=== PATIENT | female | born 1965 | race Caucasian/White ===

== ENCOUNTER 2017-05-28 12:09 | Emergency (ER) | payer SELFPAY ==
[~2017-05-28] VITALS: Ht 154.9 cm; Wt 87.0 kg
[2017-05-28] MEDS ORDERED: TOBREX OPTH5 ML/BTL OU (13:23)
[2017-05-28 13:25] VITALS: BP 145/81
== END 2017-05-28 13:25 | disposition home or self-care (01) | DRG 125 ==
LOC: ED 12:09
DX: H10.9 Unspecified conjunctivitis (principal)

== ENCOUNTER 2018-02-13 19:12 | Emergency (ER) | payer SELFPAY ==
[~2018-02-13] VITALS: Ht 154.9 cm; Wt 92.6 kg
[~2018-02-13 19:12] MED LIST: TOBREX OPTH5 ML/BTL OU
[2018-02-13] MEDS ORDERED: ULTRAM50 M1 PO (20:51)
[2018-02-13 21:10] VITALS: BP 155/74
== END 2018-02-13 21:10 | disposition home or self-care (01) | DRG 554 ==
LOC: ED 19:12
DX: M19.072 Primary osteoarthritis, left ankle and foot (principal); M79.672 Pain in left foot

== ENCOUNTER 2019-01-30 14:43 | Emergency (ER) | payer OTHER ==
[~2019-01-30] VITALS: Ht 154.9 cm; Wt 80.0 kg
[~2019-01-30 14:43] MED LIST changes: +ULTRAM50 M1 PO
[2019-01-30] MEDS ORDERED: BACTROBAN TOP (15:36)
[2019-01-30] MEDS ORDERED: KEFLEX500 M1 PO (15:36)
[2019-01-30 15:40] VITALS: BP 122/82
== END 2019-01-30 15:40 | disposition home or self-care (01) | DRG 607 ==
LOC: ED 14:43
DX: S00.36XA Insect bite (nonvenomous) of nose, initial encounter (principal); L03.211 Cellulitis of face; S00.86XA Insect bite (nonvenomous) of other part of head, initial encounter; W57.XXXA Bitten or stung by nonvenomous insect and other nonvenomous arthropods, initial encounter; Y92.009 Unspecified place in unspecified non-institutional (private) residence as the place of occurrence of the external cause

== ENCOUNTER 2019-02-02 20:16 | Emergency (ER) | payer OTHER ==
[~2019-02-02] VITALS: Ht 154.9 cm; Wt 92.4 kg
[~2019-02-02 20:16] MED LIST changes: +BACTROBAN TOP; +KEFLEX500 M1 PO
[2019-02-02] MEDS ORDERED: BACTRIM DS1 TAB PO (21:54)
[2019-02-02] MEDS ORDERED: BENADRYL25 M1 PO (21:54)
[2019-02-02 21:59] VITALS: BP 155/89
== END 2019-02-02 21:59 | disposition home or self-care (01) ==
LOC: ED 20:16
DX: S00.86XA Insect bite (nonvenomous) of other part of head, initial encounter (principal); R59.0 Localized enlarged lymph nodes; W57.XXXA Bitten or stung by nonvenomous insect and other nonvenomous arthropods, initial encounter; Y92.009 Unspecified place in unspecified non-institutional (private) residence as the place of occurrence of the external cause

== ENCOUNTER 2020-11-06 12:24 | Emergency (ER) | payer SELFPAY ==
[~2020-11-06] VITALS: Ht 152.4 cm; Wt 84.0 kg
[~2020-11-06 12:24] MED LIST changes: +BACTRIM DS1 TAB PO; +BENADRYL25 M1 PO
[2020-11-06 13:33] VITALS: BP 141/85
== END 2020-11-06 13:33 | disposition home or self-care (01) | DRG 605 ==
LOC: ED 12:24
PROC: 0HQFXZZ Repair Right Hand Skin, External Approach (ICD-10-PCS; principal; 2020-11-06)
DX: S61.411A Laceration without foreign body of right hand, initial encounter (principal); G62.9 Polyneuropathy, unspecified; W26.0XXA Contact with knife, initial encounter; Y92.009 Unspecified place in unspecified non-institutional (private) residence as the place of occurrence of the external cause; Y99.9 Unspecified external cause status

== ENCOUNTER 2021-04-25 21:47 | Emergency (ER) | payer SELFPAY ==
[~2021-04-25] VITALS: Ht 152.4 cm; Wt 86.0 kg
[2021-04-25 23:04] LABS: HEMOGLOBIN 13.7 g/dl (12.0-16.0); IMMATURE GRANULOCYTES 0.5 % (0.0-5.0); MEAN CELL VOLUME 89.6 fL CALC (80.0-100.0); MEAN CORPUSCULAR HGB 28.5 pG CALC (26.0-32.0); MEAN CORPUSCULAR HGB CONC 31.9 g/dL CAL (32.0-36.0); NEUT# 5.8 thou/uL (2.00-7.15); RED BLOOD COUNT 4.8 mill/uL (4.20-5.60); RED CELL DISTRI WIDTH 13.2 % (11.5-15.5)
[2021-04-25 23:08] LABS: URINE BILIRUBIN - DIPSTICK NEGATIVE (NEGATIVE); URINE BLOOD DIPSTICK NEGATIVE (NEGATIVE); URINE COLOR YELLOW; URINE GLUCOSE - DIPSTICK NEGATIVE (NEGATIVE); URINE KETONE NEGATIVE (NEGATIVE); URINE LEUK ESTERASE NEGATIVE (NEGATIVE); URINE PH 5.5 (4.5-8.0); URINE PROTEIN - DIPSTICK NEGATIVE (NEG-TRACE); URINE SPECIFIC GRAVITY >=1.030; URINE UROBILINOGEN - DIPSTICK 0.2 E.U./dL (0.2)
[2021-04-25 23:11] LABS: URINE NITRITE - DIPSTICK NEGATIVE (Negative)
[2021-04-25 23:21] LABS: ALBUMIN 3.8 g/dL (3.2-5.0); ALKALINE PHOSPHATASE 65 u/l (38-126); AMYLASE 61 u/l (30-110); ANION GAP 11 (6-22 (CALC)); BILIRUBIN, TOTAL 0.4 mg/dL (0.0-1.4); BUN 23 mg/dL (7-17); BUN/CREATININE RATIO 24 (12-20 (CALC)); CARBON DIOXIDE 24 mmol/l (22-30); CHLORIDE 110 mmol/l (95-108); CREATININE 0.9 mg/dL (0.5-1.0); GFR > 60 ML/MIN (>=60 (CALC)); GFR FOR AFR.AMER. > 60 ML/MIN (>=60 (CALC)); LIPASE 173 u/l (23-300); POTASSIUM 4.6 mmol/l (3.5-5.1); SGOT/AST 25 u/l (14-36); SODIUM 140 mmol/l (137-146); TOTAL PROTEIN 7.3 g/dL (6.3-8.2)
[2021-04-26] MEDS ORDERED: CYCLOBENZAPRINE10 MG PO (01:12)
[2021-04-26] MEDS ORDERED: NAPROXEN500 MG PO (01:12)
[2021-04-26 01:25] VITALS: BP 150/85
== END 2021-04-26 01:40 | disposition home or self-care (01) | DRG 552 ==
LOC: ED 21:47
PROVIDERS: Emergency Medicine
DX: M47.816 Spondylosis without myelopathy or radiculopathy, lumbar region (principal); G62.9 Polyneuropathy, unspecified